=== PATIENT | female | born 1970 | race American Indian/Alaskan Native ===

== ENCOUNTER 2018-09-11 09:08 | Emergency (ER) | payer OTHER ==
[2018-09-11] MEDS ORDERED: DILAUDID IM ONE (10:18)
--- NOTE | 2018-09-11 10:18 | Emergency Department Report ---
ED General Adult HPI - General Chief complaint: Back Pain/Injury Stated complaint: LOWER BACK PAIN Time Seen by Provider: 09/11/18 10:13 Source: patient, EMS (ems notes not available at time of chart dictation), RN notes reviewed Mode of arrival: Stretcher Limitations: Physical Limitation - History of Present Illness Initial comments: This is a 48-year-old female. The patient has a history of anemia. She also has a history of obesity. She reports that she is not . She presents to the emergency room today with complaints of nontraumatic left- sided gluteal pain which radiates down the left lower extremity. These symptoms have been going on for a few days. They're intermittent. The pain is burning, sharp and intense in nature. Patient reports being seen at another hospital, [facility] recently, and was presumptively diagnosed with radiculopathy. She does not have a primary care doctor. She denies bladder or bowel retention, incontinence. She makes no complaint of extremity weakness. The pain is somewhat improved with intramuscular hydromorphone here in the emergency room. However, she is still experiencing pain. -: Gradual, days(s) Location: buttocks, left, lower extremity Radiation: extremity Severity scale (0 -10): 10 Quality: burning, aching Consistency: constant Improves with: medication, rest Worsens with: movement - Related Data Previous Rx's Medication Instructions Recorded Last Taken Type Acetaminophen [Tylenol Arthritis] 650 mg PO Q6HR PRN #30 tablet.er 09/11/18 Unknown Rx Ketorolac [Toradol] 10 mg PO Q6H PRN #20 tablet 09/11/18 Unknown Rx Methocarbamol [Robaxin TAB] 1,500 mg PO TID PRN #30 tab 09/11/18 Unknown Rx Allergies Allergy/AdvReac Type Severity Reaction Status Date / Time No Known Allergies Allergy Verified 09/11/18 09:31 ED Review of Systems ROS: Stated complaint: LOWER BACK PAIN Other details as noted in HPI Constitutional: denies: fever Eyes: denies: eye discharge ENT: denies: epistaxis Respiratory: denies: cough Cardiovascular: denies: chest pain Genitourinary: denies: dysuria Musculoskeletal: back pain Skin: denies: lesions Neurological: paresthesias Psychiatric: anxiety ED Past Medical Hx - Past Medical History Previous Medical History?: Yes Additional medical history: anemia - Surgical History Past Surgical History?: No - Social History Smoking Status: Never Smoker Substance Use Type: None - Medications Home Medications: Home Medications Medication Instructions Recorded Confirmed Last Taken Type Acetaminophen [Tylenol Arthritis] 650 mg PO Q6HR PRN #30 tablet.er 09/11/18 Unknown Rx Ketorolac [Toradol] 10 mg PO Q6H PRN #20 tablet 09/11/18 Unknown Rx Methocarbamol [Robaxin TAB] 1,500 mg PO TID PRN #30 tab 09/11/18 Unknown Rx ED Physical Exam - General Limitations: Physical Limitation General appearance: alert, anxious, in distress, obese - Head Head exam: Present: atraumatic, normocephalic - Eye Eye exam: Present: normal appearance, EOMI. Absent: nystagmus - ENT ENT exam: Present: normal exam, normal orophraynx, mucous membranes moist, normal external ear exam - Neck Neck exam: Present: normal inspection, full ROM. Absent: tenderness, meningismus - Respiratory Respiratory exam: Present: normal lung sounds bilaterally. Absent: respiratory distress - Cardiovascular Cardiovascular Exam: Present: regular rate, normal rhythm, normal heart sounds. Absent: bradycardia, tachycardia, irregular rhythm, systolic murmur, diastolic murmur, rubs, gallop - GI/Abdominal GI/Abdominal exam: Present: soft. Absent: distended, tenderness, guarding, rebound, rigid, pulsatile mass - Extremities Exam Extremities exam: Present: normal inspection, full ROM (dorsi and plantar flexion intact in the bilateral feet. Extensor hallucis longus intact in the bilateral feet. Hip extension and flexion in the left extremity limited secondary to pain.), other (2+ pulses noted in the bilateral upper, lower extremities. Compartments soft. No long bony tenderness. The pelvis is stable.). Absent: pedal edema, joint swelling, calf tenderness - Back Exam Back exam: Present: normal inspection. Absent: CVA tenderness (R), CVA tenderness (L), vertebral tenderness - Neurological Exam Neurological exam: Present: alert, other (Extraocular movements intact. Tongue midline. No facial droop. Facial sensation intact to light touch in the V1, V2, V3 distribution bilaterally. 5 and 5 strength in 4 extremities.. Sensation is intact to light touch in 4 extremities.). Absent: motor sensory deficit - Psychiatric Psychiatric exam: Present: anxious - Skin Skin exam: Present: warm, dry, intact, normal color. Absent: rash ED Course Vital Signs 09/11/18 09:31 Temperature 97.9 F Pulse Rate 86 Respiratory 16 Rate Blood Pressure 143/51 O2 Sat by Pulse 98 Oximetry - Reevaluation(s) Reevaluation #1: 09/11/18 11:36 Differential diagnosis, including the not limited to: Lumbar radiculopathy, mechanical back pain, musculoskeletal back pain Assessment and plan: 48-year-old female with moderate to severe clinical lumbar radiculopathy. Pain somewhat improved with hydromorphone, on repeat examination, patient has gone from laying on her side, to lay on her back, and is noted to be playing on a cellular phone, looking at [employer]. Her pain is still inhibiting her range of motion, so we will give additional pain medication. Screening laboratory studies so far unremarkable. Her history and physical at this point time do not appear to be consistent with acute cord compression. Reevaluation #2: 09/11/18 13:01 Patient feels improved. Range of motion improved. Patient able to sit up and move her bilateral lower extremities. However, she reports that her pain is so intense that she is not able to put any weight on the left leg. Two person ambulation assist was attempted. This was unsuccessful, as the patient was not able to place any weight on the left leg. Reevaluation #3: 09/11/18 13:37 Patient is able to walk with a rolling walker. She is partial weightbearing on the left leg. The patient has been evaluated by physical therapy. Awaiting case management to come by and evaluate the patient, and set up home physical therapy, home rehabilitation. Again had extensive discussion with patient and significant other, and indicated that natural history of radiculopathy will take weeks, months, or even years to improve Have recommended physical activities as tolerated, diet and weight loss, and lifestyle modifications. ED Medical Decision Making - Lab Data Result diagrams: 09/11/18 10:47 09/11/18 10:52 Vital Signs 09/11/18 09:31 Temperature 97.9 F Pulse Rate 86 Respiratory 16 Rate Blood Pressure 143/51 O2 Sat by Pulse 98 Oximetry Lab Results 09/11/18 09/11/18 09/11/18 Range/Units 10:47 10:52 10:52 WBC 9.9 (4.5-11.0) K/mm3 RBC 4.21 (3.65-5.03) M/mm3 Hgb 10.6 (10.1-14.3) gm/dl Hct 33.5 (30.3-42.9) % MCV 80 (79-97) fl MCH 25 L (28-32) pg MCHC 32 (30-34) % RDW 16.5 H (13.2-15.2) % Plt Count 313 (140-440) K/mm3 Sodium 134 L (137-145) mmol/L Potassium 4.3 (3.6-5.0) mmol/L Chloride 102.8 (98-107) mmol/L Carbon Dioxide 22 (22-30) mmol/L Anion Gap 14 mmol/L BUN 11 (7-17) mg/dL Creatinine 0.5 L (0.7-1.2) mg/dL Estimated GFR > 60 ml/min BUN/Creatinine Ratio 22 % Glucose 99 (65-100) mg/dL Calcium 8.3 L (8.4-10.2) mg/dL HCG, Quant < 2 (0-4) mIU/mL Critical care attestation.: If time is entered above; I have spent that time in minutes in the direct care of this critically ill patient, excluding procedure time. ED Disposition Clinical Impression: Lumbar radiculopathy Disposition: [id number] TO HOME OR SELFCARE Is pt being admited?: No Does the pt Need Aspirin: No Condition: Stable Instructions: Lumbar Radiculopathy (ED) Additional Instructions: As we discussed, symptoms likely coming from pinched nerve in the spine. I recommend that patient lose weight progressively, and participates in physical activities as tolerated. Avoid consumption of heavy, spicy foods, eat plenty of fruits, high risk, vegetables. Patient will likely expect to have symptoms of pinched nerve for the next few weeks, months, years, or even for the rest of her life. weight loss is probably the single most important factor to improving long-term symptoms and functional outcome. Patient should participate in physical therapy as well, as directed, weightbearing as tolerated with a rolling walker, and avoid heavy lifting. Follow up with the primary care doctor, pain specialist, or orthopedist within the next 7-10 days to further manage outpatient care. Follow-up with an outpatient physical therapist as soon as possible to continue outpatient physical therapy. Avoid consumption of alcohol, and sedating medications when taking the methocarbamol. Return to the emergency room right away with new pain, worsened pain, migration of pain, extremity weakness, inability to walk, bladder or bowel retention, incontinence, numbness or tingling over the genitals, rectum or per an amp. Referrals: GRAHAM PARADA MD [Staff Physician] - 3-5 Days ADEOLA MATTHEWS MD [Staff Physician] - 3-5 Days NEHA CASTELLANOS MD [Staff Physician] - 3-5 Days [facility] [Provider Group] - 3-5 Days
[2018-09-11 11:02] LABS: Hematocrit 33.5 % (30.3-42.9); Hemoglobin 10.6 gm/dl (10.1-14.3); Mean Corpuscular HGB Conc 32 % (30-34); Mean Corpuscular Volume 80 fl (79-97); Platelet Count 313 K/mm3 (140-440); Red Blood Count 4.21 M/mm3 (3.65-5.03); Red Cell Distribution Width 16.5 % (13.2-15.2)
[2018-09-11 11:21] LABS: BUN/Creatinine Ratio 22; Blood Urea Nitrogen 11 mg/dL (7-17); Calcium 8.3 mg/dL (8.4-10.2); Hemolysis Index 14
[2018-09-11] MEDS ORDERED: DILAUDID IV ONE (11:33)
[2018-09-11] MEDS ORDERED: TORADOL IV ONE (11:33)
[2018-09-11] MEDS ORDERED: XYLOCAINE CARDIAC IV ONE (11:33)
[2018-09-11] MEDS ORDERED: DECADRON IV ONE (13:00)
[2018-09-12 18:40] VITALS: BP 132/81
== END 2018-09-11 14:20 | disposition home or self-care (01) ==
LOC: ED 09:08
DX: M54.16 Radiculopathy, lumbar region (principal); Z86.2 Personal history of diseases of the blood and blood-forming organs and certain disorders involving the immune mechanism
CPT/HCPCS: 36415; 80048; 82550; 84702; 85027; 96372; 96374; 96375; 99284; J1100; J1170; J1885; J2001

== ENCOUNTER 2018-09-12 14:20 | Emergency (ER) | payer OTHER ==
[~2018-09-12 14:20] MED LIST: ZOFRAN IV ONE
--- NOTE | 2018-09-12 14:29 | Emergency Department Report ---
Chief Complaint: Dyspnea/Respdistress Stated Complaint: KINA - HPI History of Present Illness: HERE LAST PM TX FOR SCIATICA THIS AM 0300 SHE WOKE UP N/V HERE WITH DAUGHTER HYPERVENTILATING/ANXIOUS LABS YEST NOTED FROM YEST [facility]H OBESE PSH NONE RX NONE THC ETOH CIG NO CP NO SOB MSE COMPLETED MSE screening note: Focused history and physical exam performed. Due to findings the following was ordered: ED Disposition for MSE Condition: Stable
[2018-09-12 15:15] LABS: Basophils # (Auto) 0.1 K/mm3 (0.0-0.1); Basophils % (Auto) 0.6 % (0.0-1.8); Eosinophils % (Auto) 0.1 % (0.0-4.3); Hematocrit 35.5 % (30.3-42.9); Hemoglobin 11.6 gm/dl (10.1-14.3); Lymphocytes # (Auto) 1.7 K/mm3 (1.2-5.4); Lymphocytes % (Auto) 8.8 % (13.4-35.0); Mean Corpuscular HGB Conc 33 % (30-34); Mean Corpuscular Volume 79 fl (79-97); Monocytes % (Auto) 5.3 % (0.0-7.3); Platelet Count 351 K/mm3 (140-440); Red Blood Count 4.52 M/mm3 (3.65-5.03); Red Cell Distribution Width 16.4 % (13.2-15.2)
[2018-09-12 15:37] LABS: Alanine Aminotransferase 6 units/L (7-56); Albumin 4.4 g/dL (3.9-5); BUN/Creatinine Ratio 33; Blood Urea Nitrogen 13 mg/dL (7-17); Calcium 9.4 mg/dL (8.4-10.2); Hemolysis Index 8
[2018-09-12] MEDS ORDERED: ZOFRAN ONE (16:14)
[2018-09-12] MEDS ORDERED: IBUPROFEN PO ONE (16:16)
--- NOTE | 2018-09-12 17:22 | XRay Report ---
PROCEDURE: XR CHEST 1V AP TECHNIQUE: Single AP chest HISTORY: PAIN COMPARISONS: FINDINGS: Cardiac and mediastinal contours are unremarkable. No focal pulmonary infiltrate identified. No pleur al fluid collection seen. Pulmonary vasculature is unremarkable. IMPRESSION: No acute cardiopulmonary findings. This document is electronically signed by Joshua Mooney MD., September 12 2018 05:21:03 PM ET
[2018-09-12] MEDS ORDERED: PEPCID IV ONE (17:26)
--- NOTE | 2018-09-12 17:28 | Emergency Department Report ---
ED General Adult HPI - General Chief complaint: Dyspnea/Respdistress Stated complaint: KINA Time Seen by Provider: 09/12/18 14:29 Source: patient, EMS, RN notes reviewed, old records reviewed Mode of arrival: Wheelchair Limitations: Physical Limitation - History of Present Illness Initial comments: This is a 48-year-old female. I have evaluated this patient as of yesterday. The patient came in yesterday for severe sciatica. The patient was treated aggressively with Decadron, hydromorphone, intravenous lidocaine and Toradol. She was discharged with improved condition. Please note that the patient reports that she is a daily cannabis consumer. Patient presents to the emergency room today with a complaint of abdominal cramping, nausea, vomiting, diarrhea, shortness of breath. Her symptoms started at 4:00 in the morning. She reports too many episodes of diarrhea, nausea, vomiting to count. They are nonbloody and nonbilious. There is mild crampy diffuse abdominal pain. There are no irritative or obstructive urinary symptoms. Patient reports she is currently menstruating. The stress of breath started at 2:30 this afternoon, and lasted for a half hour. It is now resolved. She does not have exertional shortness of breath. She de nies leg pain, leg swelling, oral contraceptive use, and recent hospitalizations. She has a recent road trip to [place], but she stopped frequently for gas, and bathroom breaks. Patient was given ibuprofen by the nurse practitioner prior to my evaluation. In the emergency room, the patient is given Pepcid, IV fluids, Zofran, and Haldol, all of which dramatically improved her symptoms. She now currently has no shortness of breath, no nausea or vomiting, and was able to tolerate liquid Carafate. -: Gradual, hour(s) Location: abdomen Radiation: non-radiation Severity scale (0 -10): 8 Quality: aching Consistency: constant Improves with: medication Associated Symptoms: malaise, nausea/vomiting, shortness of breath, weakness - Related Data Previous Rx's Medication Instructions Recorded Last Taken Type Acetaminophen [Tylenol Arthritis] 650 mg PO Q6HR PRN #30 tablet.er 09/11/18 Unknown Rx Methocarbamol [Robaxin TAB] 1,500 mg PO TID PRN #30 tab 09/11/18 Unknown Rx Acetaminophen [Tylenol Arthritis] 650 mg PO Q6HR PRN #30 tablet.er 09/12/18 Unknown Rx Famotidine [Pepcid] 20 mg PO BID #60 tablet 09/12/18 Unknown Rx Metoclopramide [Reglan] 10 mg PO QID PRN #30 tablet 09/12/18 Unknown Rx Promethazine HCl [Phenergan SUPPOS] 25 mg RC Q6HR PRN #15 supp.rect 09/12/18 Unknown Rx Allergies Allergy/AdvReac Type Severity Reaction Status Date / Time No Known Allergies Allergy Verified 09/11/18 09:31 ED Review of Systems ROS: Stated complaint: KINA Other details as noted in HPI Constitutional: malaise, weakness Eyes: denies: vision change ENT: denies: congestion Respiratory: shortness of breath Cardiovascular: denies: chest pain Gastrointestinal: nausea, vomiting, diarrhea Genitourinary: denies: dysuria Musculoskeletal: myalgia Skin: denies: lesions Neurological: denies: headache Psychiatric: anxiety ED Past Medical Hx - Past Medical History Previous Medical History?: Yes Additional medical history: anemia - Surgical History Past Surgical History?: No - Social History Smoking Status: Current Every Day Smoker Substance Use Type: Alcohol, Marijuana - Medications Home Medications: Home Medications Medication Instructions Recorded Confirmed Last Taken Type Acetaminophen [Tylenol Arthritis] 650 mg PO Q6HR PRN #30 tablet.er 09/11/18 Unknown Rx Methocarbamol [Robaxin TAB] 1,500 mg PO TID PRN #30 tab 09/11/18 Unknown Rx Acetaminophen [Tylenol Arthritis] 650 mg PO Q6HR PRN #30 tablet.er 09/12/18 Unknown Rx Famotidine [Pepcid] 20 mg PO BID #60 tablet 09/12/18 Unknown Rx Metoclopramide [Reglan] 10 mg PO QID PRN #30 tablet 09/12/18 Unknown Rx Promethazine HCl [Phenergan SUPPOS] 25 mg RC Q6HR PRN #15 supp.rect 09/12/18 Unknown Rx ED Physical Exam - General Limitations: Physical Limitation General appearance: alert, anxious, in distress, obese - Eye Eye exam: Present: normal appearance, PERRL, EOMI. Absent: nystagmus - ENT ENT exam: Present: normal exam, normal orophraynx, normal external ear exam - Neck Neck exam: Present: normal inspection, full ROM. Absent: tenderness, meningismus - Respiratory Respiratory exam: Present: normal lung sounds bilaterally. Absent: respiratory distress, wheezes, rales, rhonchi, stridor, chest wall tenderness, accessory muscle use, decreased breath sounds, prolonged expiratory - Cardiovascular Cardiovascular Exam: Present: regular rate, normal rhythm, normal heart sounds. Absent: bradycardia, tachycardia, irregular rhythm - GI/Abdominal GI/Abdominal exam: Present: soft. Absent: distended, tenderness, guarding, rebound, rigid, pulsatile mass - Extremities Exam Extremities exam: Present: normal inspection, full ROM, other (2+ pulses noted in the bilateral upper, lower extremities. Compartments soft. No long bony tenderness. The pelvis is stable.). Absent: pedal edema, joint swelling, calf tenderness - Back Exam Back exam: Absent: CVA tenderness (R), muscle spasm, paraspinal tenderness - Neurological Exam Neurological exam: Present: alert, other (Extraocular movements intact. Tongue midline. No facial droop. Facial sensation intact to light touch in the V1, V2, V3 distribution bilaterally. 5 and 5 strength in 4 extremities.. Sensation is intact to light touch in 4 extremities.). Absent: motor sensory deficit - Psychiatric Psychiatric exam: Present: anxious - Skin Skin exam: Present: dry ED Course Vital Signs 09/12/18 19:30 Temperature 98.1 F Pulse Rate 88 Respiratory 18 Rate Blood Pressure 146/73 [Left] O2 Sat by Pulse 100 Oximetry ED Medical Decision Making - Lab Data Result diagrams: 09/12/18 14:45 09/12/18 14:45 Labs 09/12/18 09/12/18 09/12/18 14:45 14:45 15:23 WBC 19.8 H RBC 4.52 Hgb 11.6 Hct 35.5 MCV 79 MCH 26 L MCHC 33 RDW 16.4 H Plt Count 351 Lymph % (Auto) 8.8 L Ritchie % (Auto) 5.3 Eos % (Auto) 0.1 Baso % (Auto) 0.6 Lymph # 1.7 Ritchie # 1.0 H Eos # 0.0 Baso # 0.1 Seg Neutrophils % 85.2 H Seg Neutrophils # 16.9 H PT INR D-Dimer Sodium 137 Potassium 3.7 Chloride 101.7 Carbon Dioxide 19 L Anion Gap 20 BUN 13 Creatinine 0.4 L Estimated GFR > 60 BUN/Creatinine Ratio 33 Glucose 112 H Calcium 9.4 Magnesium Total Bilirubin 0.30 AST 12 ALT 6 L Alkaline Phosphatase 70 Total Protein 7.8 Albumin 4.4 Albumin/Globulin Ratio 1.3 Lipase Urine Color Yellow Urine Turbidity Slightly-cloudy Urine pH 7.0 Ur Specific [place] 1.057 H Urine Protein <15 mg/dl Urine Glucose (UA) Neg Urine Ketones 20 Urine Blood Lg Urine Nitrite Neg Urine Bilirubin Neg Urine Urobilinogen < 2.0 Ur Leukocyte Esterase Neg Urine WBC (Auto) 11.0 H Urine RBC (Auto) 48.0 U Epithel Cells (Auto) 1.0 Urine Bacteria (Auto) 1+ Urine Mucus Few Urine Yeast (Budding) 3+ 09/12/18 09/12/18 09/12/18 17:31 17:31 17:31 WBC RBC Hgb Hct MCV MCH MCHC RDW Plt Count Lymph % (Auto) Ritchie % (Auto) Eos % (Auto) Baso % (Auto) Lymph # Ritchie # Eos # Baso # Seg Neutrophils % Seg Neutrophils # PT 12.1 L INR 0.85 L D-Dimer 221.28 Sodium Potassium Chloride Carbon Dioxide Anion Gap BUN Creatinine Estimated GFR BUN/Creatinine Ratio Glucose Calcium Magnesium 2.10 Total Bilirubin AST ALT Alkaline Phosphatase Total Protein Albumin Albumin/Globulin Ratio Lipase 20 Urine Color Urine Turbidity Urine pH Ur Specific [place] Urine Protein Urine Glucose (UA) Urine Ketones Urine Blood Urine Nitrite Urine Bilirubin Urine Urobilinogen Ur Leukocyte Esterase Urine WBC (Auto) Urine RBC (Auto) U Epithel Cells (Auto) Urine Bacteria (Auto) Urine Mucus Urine Yeast (Budding) - EKG Data -: EKG Interpreted by De EKG shows normal: sinus rhythm Rate: normal - EKG Data When compared to previous EKG there are: previous EKG unavailable 09/12/18 21:41 EKG shows a sinus rhythm, 67 bpm, left axis deviation, left anterior fascicular block, low voltage, not having chest pain, this is an abnormal EKG, this EKG is not consistent with ST elevation myocardial infarction. - Radiology Data Radiology results: report reviewed, image reviewed Print Report Referring Physician: STEVEN BECKWITH Patient Name: GUS HAJI Date of : 1970 Sex: Female Report Date: 2018-09-12 Report Status: Finalized Findings [facility] [address] [place] [address] Cat Scan Report Signed Patient: GUS HAJI MR#: [id number] : 1970 Acct:[id number] Age/Sex: 48 / F ADM Date: 09/12/18 Loc: ED Attending Dr: Ordering Physician: STEVEN BECKWITH MD Date of Service: 09/12/18 Procedure(s): CT abdomen pelvis w con Accession Number(s): [id number] cc: STEVEN BECKWITH MD PROCEDURE: CT ABDOMEN PELVIS W CON TECHNIQUE: Computerized axial tomography of the abdomen and pelvis was performed after the IV injection of iodinated nonionic contrast. CT DOSE LENGTH PRODUCT: 3230.7 mGycm HISTORY: abd pain n/v COMPARISONS: None . FINDINGS: Study is limited by significant beam hardening artifact likely related to the patient's large body habitus. Lower Lung olguin: Minimal fibrosis seen in the right lower lobe inferiorly medially. Lung bases otherwise clear. Upper Abdomen: The liver, gallbladder, the adrenal glands, the pancreas and the spleen are unremarkable. Kidneys, Ureters and Urinary bladder: Small renal cortical cyst as well as middle third right kidney. The kidneys, ureters and urinary bladder otherwise are unremarkable. Calcifications are seen in the lower pelvis which appear to represent phleboliths. Retroperitoneum: Abdominal aorta appears normal. Nonspecific subcentimeter lymph nodes are seen in the retroperitoneum. No pathologically enlarged lymph nodes are identified. Bowel: Minimal diverticulosis is seen in left side of the colon without evidence of diverticulitis. No evidence of bowel obstruction or ascites. There is no free intraperitoneal gas. Normal-appearing appendix is seen in the right lower quadrant. Minimal umbilical hernia containing adipose tissue is visualized. No herniated loops of bowel are seen. Reproductive organs: The uterus is enlarged and lobulated. I suspect uterine fibroids are present. The uterus measures 13.1 x 16.9 x 9.2 cm. No abnormal adnexal masses are seen. Other: There is mild degenerative grade 1 retrolisthesis of L5 in relation to S1. I do not see evidence of spondylolysis. IMPRESSION: Minimal colonic diverticulosis as described without evidence of diverticulitis. Minimal umbilical hernia present. Enlarged uterus. The uterus appears lobulated. I suspect uterine fibroids are visualized. If clinically indicated pelvic ultrasound could be obtained for further evaluation. Mild degenerative grade 1 retrolisthesis of L5 relation to S1. I do not see evidence of spondylolysis. This document is electronically signed by Ceferino Garner MD., September 12 2018 07:17:09 PM ET Transcribed By: DFN Dictated By: CEFERINO GARNER MD Electronically Authenticated By: CEFERINO GARNER MD Signed Date/Time: 09/12/181918 - Medical Decision Making Differential diagnosis, including not limited to: Medication side effect, GERD, gastritis, hiatal hernia, colitis, diverticulitis, cannabinoid hyperemesis syndrome, pneumonia, pulmonary embolus, pulmonary hypertension, obesity, anxiety Assessment and plan: 48-year-old obese female, reported to be a daily cannabis consumer, recently seen yesterday for sciatica pain, received aggressive medication, including Decadron, Toradol. I suspect that patient is experiencing side effects from both Decadron, Toradol, and chronic cannabis consumption. Leukocytosis is reviewed and appreciated, this is likely a stress reaction, as well as secondary to recent systemic steroid administration. Patient low risk by well's criteria, not hypoxic, had a negative d-dimer, I find the patient to be perc negative Patient reassessed multiple times by myself fall here in the emergency department. She is clinically improved after aggressive medications. She is counseled to discontinue cannabis consumption, she is counseled to taper down or decreased NSAID consumption, she will be discharged with Pepcid, Reglan, as needed Phenergan, acetaminophen as needed for sciatica pain, and she may attempt [id number] ibuprofen in a few days to a few weeks once her symptoms have improved. The patient can follow up with an outpatient primary care doctor or engineering assistant for her abnormal EKG. She can follow up with the primary care doctor or kapok machine operator for her GI related symptoms. Critical care attestation.: If time is entered above; I have spent that time in minutes in the direct care of this critically ill patient, excluding procedure time. ED Disposition Clinical Impression: Cannabinoid hyperemesis syndrome, History of shortness of breath Disposition: DC-01 TO HOME OR SELFCARE Is pt being admited?: No Does the pt Need Aspirin: No Condition: Stable Instructions: Cannabis Abuse (ED), Gastroesophageal Reflux in Children (ED), Dyspnea (ED) Additional Instructions: As we discussed, symptoms likely coming from a combination of factors, including long-term cannabis consumption, and probable side effects of the pain medications that the patient was prescribed yesterday, including Decadron, and Toradol. Discontinue Toradol use. Take the acetaminophen as needed for lumbar back pain. Take the other pain medications as needed/directed. Take the nausea medications orally, rectally, as needed/directed. Discontinue consumption of cannabis. Avoid consumption of heavy, spicy foods. Follow-up with the primary care doctor for abdominal pain, nausea or vomiting, or kapok machine operator, in the next 2 weeks. EKG did not demonstrate heart attack, but showed nonspecific abnormalities, and the patient should follow-up with a primary care doctor or engineering assistant for this within the next 2 weeks. Patient may attempt a trial of ibuprofen, or Motrin, 400 mg with food, every 6 hours, in 7-10 days, once abdominal cramping, nausea and vomiting have improved, or sooner, if cleared by a primary care doctor or kapok machine operator. This medication is more gentle than Toradol, and may help with radicular pain on the lower back/sciatica pain. Please return to the emergency room right away with new, worsening or different symptoms Referrals: PEEWEE SNYDER MD [Primary Care Provider] - 3-5 Days [facility] [Provider Group] - 3-5 Days [facility] [Provider Group] - 3-5 Days [facility] [Provider Group] - 3-5 Days
[2018-09-12 17:51] LABS: INR 0.85 (0.87-1.13)
[2018-09-12] MEDS ORDERED: NACL 0.9% 500 ML 500 ML IV SCH (18:00)
[2018-09-12] MEDS ORDERED: HALDOL IM STA (18:00)
[2018-09-12] MEDS: ZOFRAN IV ONE ×2 (18:13→20:32)
--- NOTE | 2018-09-12 19:19 | Cat Scan Report ---
PROCEDURE: CT ABDOMEN PELVIS W CON TECHNIQUE: Computerized axial tomography of the abdomen and pelvis was performed after the IV inject ion of iodinated nonionic contrast. CT DOSE LENGTH PRODUCT: 3230.7 mGycm HISTORY: abd pain n/v COMPARISONS: None . FINDINGS: Study is limited by significant beam hardening artifact likely related to the patient's lar ge body habitus. Lower Lung olguin: Minimal fibrosis seen in the right lower lobe inferiorly medially. Lung bases oth erwise clear. Upper Abdomen: The liver, gallbladder, the adrenal glands, the pancreas and the spleen are unremarka ble. Kidneys, Ureters and Urinary bladder: Small renal cortical cyst as well as middle third right kidney . The kidneys, ureters and urinary bladder otherwise are unremarkable. Calcifications are seen in the lower pelvis which appear to represent phleboliths. Retroperitoneum: Abdominal aorta appears normal. Nonspecific subcentimeter lymph nodes are seen in the retroperitoneum. No pathologically enlarged ly mph nodes are identified. Bowel: Minimal diverticulosis is seen in left side of the colon without evidence of diverticulitis. No evidence of bowel obstruction or ascites. There is no free intraperitoneal gas. Normal-appearing a ppendix is seen in the right lower quadrant. Minimal umbilical hernia containing adipose tissue is vi sualized. No herniated loops of bowel are seen. Reproductive organs: The uterus is enlarged and lobulated. I suspect uterine fibroids are present. T he uterus measures 13.1 x 16.9 x 9.2 cm. No abnormal adnexal masses are seen. Other: There is mild degenerative grade 1 retrolisthesis of L5 in relation to S1. I do not see eviden ce of spondylolysis. IMPRESSION: Minimal colonic diverticulosis as described without evidence of diverticulitis. Minimal umbilical hernia present. Enlarged uterus. The uterus appears lobulated. I suspect uterine fibroids are visualized. If clinical ly indicated pelvic ultrasound could be obtained for further evaluation. Mild degenerative grade 1 retrolisthesis of L5 relation to S1. I do not see evidence of spondylolysis . This document is electronically signed by Ceferino Villasenor MD., September 12 2018 07:17:09 PM ET
[2018-09-12 19:55] LABS: Bacteria,Urine 1+ /HPF (Negative); Bilirubin,Urine NEG (Negative); Blood,Urine LG (Negative); Color,Urine Yellow (Yellow); Mucus,Urine FEW /HPF; Protein,Urine <15 mg/dL mg/dL (Negative); Urobilinogen,Urine < 2.0 mg/dL (<2.0)
[2018-09-12] MEDS ORDERED: CARAFATE PO ONE (20:35)
[2018-09-12 21:48] VITALS: BP 139/67
== END 2018-09-12 22:02 | disposition home or self-care (01) ==
LOC: ED 14:20
DX: F12.20 Cannabis dependence, uncomplicated (principal); R06.02 Shortness of breath; F17.200 Nicotine dependence, unspecified, uncomplicated
CPT/HCPCS: 36415; 71045; 74177; 80053; 81001; 83690; 83735; 85025; 85379; 85610; 93005; 93010; 96361; 96372; 96374; 96375; 99285; J1630; J2405; J7040; Q9967